=== PATIENT | female | born 1955 | race Caucasian/White ===

== ENCOUNTER 2019-10-06 13:39 | Observation (INO) | payer BC ==
[2019-10-06] MEDS ORDERED: NORMAL SALINE 1000 ML 1,000 ML IV ONE ×2 (14:05→19:04)
--- NOTE | 2019-10-06 14:08 | ER Document Report ---
ED Medical Screen (RME) - General Chief Complaint: Congestion Stated Complaint: CONGESTION/COUGH Time Seen by Provider: 10/06/19 14:02 - HPI Notes: 10/06/19 14:05 64 year old female to the ED with C/O cough, congestion that has been ongoing since Sep 24 when she was discharged from the hospital for pneumonia. States she was on Levaquin and Doxycycline but she still feels the same. Admits to chest tightness and pressure as well as SOB. She gets particularly SOB when she exerts herself. She is a lymphoma patient and visiting family. I have performed a medical screening exam on the patient and determined she will need further management by mainside provider. I have placed initial orders to help expedite her care. 10/06/19 14:07 - Related Data Allergies/Adverse Reactions: ceftriaxone [From Rocephin] Allergy (Verified 10/06/19 13:54) Home Medications: Levaquin. Doxycline Past Medical History - Social History Chew tobacco use (# tins/day): No Drug Abuse: None Physical Exam - Vital signs Vitals: Temp Pulse Resp BP Pulse Ox 98.3 F 75 18 189/69 H 95 10/06/19 13:46 10/06/19 13:46 10/06/19 13:46 10/06/19 13:46 10/06/19 13:46 Course - Vital Signs Vital signs: Temp Pulse Resp BP Pulse Ox 98.3 F 75 18 189/69 H 95 10/06/19 13:54 10/06/19 13:54 10/06/19 13:54 10/06/19 13:54 10/06/19 13:54
--- NOTE | 2019-10-06 15:44 | EKG REPORT ---
SEVERITY:- ABNORMAL ECG - SINUS RHYTHM BORDERLINE LEFT AXIS DEVIATION NONSPECIFIC T ABNORMALITIES, INFERIOR LEADS : Confirmed by: Arnol Benítez MD 06-Oct-2019 15:43:50
[2019-10-06 15:49] LABS: ABSOLUTE EOSINOPHILS # (AUTO) 0.2 10^3/uL (0.0-0.6); ABSOLUTE LYMPHOCYTES (AUTO) 0.5 10^3/uL (0.5-4.7); ABSOLUTE NEUT (AUTO) 7.1 10^3/uL (1.7-8.2); BASOPHILS % (AUTO) 0.4 % (0-2); EOSINOPHILS % (AUTO) 2.1 % (0-6); HEMATOCRIT 40.3 % (36.0-47.0); HEMOGLOBIN 13.4 g/dL (12.0-15.5); LYMPHOCYTES % (AUTO) 5.4 % (13-45); MEAN CORPUSCULAR HEMOGLOBIN 31.3 pg (27.0-33.4); MEAN CORPUSCULAR HGB CONC 33.2 g/dL (32.0-36.0); MEAN CORPUSCULAR VOLUME 94 fl (80-97); MONOCYTES % (AUTO) 10.9 % (3-13); PLATELET COUNT 174 10^3/uL (150-450); RED BLOOD COUNT 4.26 10^6/uL (3.72-5.28); RED CELL DISTRIBUTION WIDTH 14.4 % (11.5-14.0); SEGMENTED NEUTROPHILS % (AUTO) 81.2 % (42-78); TOTAL CELLS COUNTED % (AUTO) 100 %; WHITE BLOOD COUNT 8.8 10^3/uL (4.0-10.5)
[2019-10-06 16:07] LABS: ALBUMIN 4.1 g/dL (3.5-5.0); ALKALINE PHOSPHATASE 87 U/L (38-126); ANION GAP 11 (5-19); ASPARTATE AMINO TRANSFERASE 21 U/L (14-36); BILIRUBIN,DIRECT 0.1 mg/dL (0.0-0.4); BILIRUBIN,TOTAL 0.7 mg/dL (0.2-1.3); BLOOD UREA NITROGEN 9 mg/dL (7-20); CALCIUM 9.7 mg/dL (8.4-10.2); CARBON DIOXIDE 28 mmol/L (22-30); CHLORIDE 103 mmol/L (98-107); GLUCOSE 230 mg/dL (75-110); POTASSIUM 4.1 mmol/L (3.6-5.0); TOTAL PROTEIN 6.5 g/dL (6.3-8.2)
--- NOTE | 2019-10-06 16:48 | RADIOLOGY REPORT (SQ) ---
EXAM DESCRIPTION: CHEST 2 VIEWS COMPLETED DATE/TIME: 10/06/2019 4:36 pm REASON FOR STUDY: cough, SOB COMPARISON: None. EXAM PARAMETERS: NUMBER OF VIEWS: two views TECHNIQUE: Digital Frontal and Lateral radiographic views of the chest acquired. RADIATION DOSE: NA LIMITATIONS: none FINDINGS: LUNGS AND PLEURA: No opacities, masses or pneumothorax. No pleural effusion. MEDIASTINUM AND HILAR STRUCTURES: No masses or contour abnormalities. HEART AND VASCULAR STRUCTURES: Heart normal size. No evidence for failure. BONES: No acute findings. HARDWARE: None in the chest. OTHER: No other significant finding. IMPRESSION: NO ACUTE RADIOGRAPHIC FINDING IN THE CHEST. TECHNICAL DOCUMENTATION: JOB ID: [id number] [place]-72 2010 [employer]- All Rights Reserved Reading location - IP/workstation name: [email or web address]
[2019-10-06] MEDS ORDERED: IPRATROPIUM/ALBUTEROL 0.5-2.5 MG/3 ML AMPUL NEB ONE (17:35)
--- NOTE | 2019-10-06 17:41 | ER Document Report ---
ED Respiratory Problem - General Chief Complaint: Congestion Stated Complaint: CONGESTION/COUGH Time Seen by Provider: 10/06/19 14:02 Notes: Ms. Abraham is a 64 yo f w/ PMH diabetes, hypertension, hyperlipidemia, and lymphoma on chemotherapy Bendamustine/Rituxan/dexamethasone, GERD, and asthma presenting to ED for congestion and cough. Patient states in the beginning of June, her son flew out to [place] and she and him together drove back to [place] where he lives. She states that after the drive, her left lower extremity was significantly swollen. She was prescribed an antibiotic for a possible "blood infection" by her doctor in [place]. Approximately 1 week ago, she drove from [place] to [place] to visit her niece and nephew. She endorses again an increase in left lower leg swelling. She states that she feels short of breath, chest tightness and ongoing cough that has not resolved since being hospitalized for pneumonia from the to 06 September. Patient's last dose of IV chemotherapy was on September 26. Patient endorses subjective chills without any fevers. No chest pain, abdominal pain, nausea vomiting or diarrhea. She does have some mild dyspnea upon exertion. - Related Data Allergies/Adverse Reactions: ceftriaxone [From Rocephin] Allergy (Verified 10/06/19 13:54) Home Medications: Levaquin. Doxycline Past Medical History - Social History Smoking Status: Former Smoker Chew tobacco use (# tins/day): No Drug Abuse: None Family History: Reviewed & Not Pertinent Patient has suicidal ideation: No Patient has homicidal ideation: No - Past Medical History Cardiac Medical History: Reports: Hx Hypercholesterolemia, Hx Hypertension Endocrine Medical History: Reports: Hx Diabetes Mellitus Type 2 Review of Systems - Review of Systems Constitutional: See HPI EENT: No symptoms reported Cardiovascular: No symptoms reported Respiratory: See HPI Gastrointestinal: No symptoms reported Genitourinary: No symptoms reported Female Genitourinary: No symptoms reported Musculoskeletal: No symptoms reported Skin: No symptoms reported Hematologic/Lymphatic: No symptoms reported Neurological/Psychological: No symptoms reported Physical Exam - Vital signs Vitals: Temp Pulse Resp BP Pulse Ox 98.3 F 75 18 189/69 H 95 10/06/19 13:46 10/06/19 13:46 10/06/19 13:46 10/06/19 13:46 10/06/19 13:46 Interpretation: Hypertensive - General General appearance: Appears well, Alert - HEENT Head: Normocephalic, Atraumatic Eyes: Normal Pupils: PERRL - Respiratory Respiratory status: No respiratory distress Chest status: Nontender Breath sounds: Decreased air movement - Somewhat decreased throughout., Rhonchi - Mild rhonchi to the left lower lobe, Wheezing - Expiratory wheeze and faint crackles to the left lower lobe. Chest palpation: Normal - Cardiovascular Rhythm: Regular Heart sounds: Normal auscultation Murmur: No - Abdominal Inspection: Normal Distension: No distension Bowel sounds: Normal Tenderness: Nontender Organomegaly: No organomegaly - Back Back: Normal, Nontender - Extremities General upper extremity: Normal inspection, Nontender, Normal color, Normal ROM, Normal temperature General lower extremity: Normal inspection, Nontender, Normal color, Normal ROM, Normal temperature, Normal weight bearing. No: Ariadne's sign - Neurological Neuro grossly intact: Yes Cognition: Normal Orientation: AAOx4 [place] Coma Scale Eye Opening: Spontaneous [place] Coma Scale Verbal: Oriented Aruna Coma Scale Motor: Obeys Commands [place] Coma Scale Total: 15 Speech: Normal Motor strength normal: LUE, RUE, LLE, RLE Sensory: Normal - Psychological Associated symptoms: Normal affect, Normal mood - Skin Skin Temperature: Warm Skin Moisture: Dry Skin Color: Normal Course - Re-evaluation Re-evalutation: Patient is generally well-appearing and nontoxic. Initial vitals notable for elevated blood pressure. Differential diagnosis includes pneumonia, URI, post pneumonia residual cough, PE Patient is actively coughing a dry nonproductive cough in the ED. She does have focal findings on clinical examination with rhonchi, crackles and an expiratory wheeze in the left lower lobe concerning for pneumonia however chest x-ray has been read as negative. Patient ordered for 2 duo nebs here in the ED. Possible postinfectious lingering cough related to her pneumonia in mid August. Patient has remote history of smoking however was never a heavy smoker, more than half a pack per day on and off for approximately 15 to 20 years. She also has been quit for over 20 years and has no diagnosis of COPD. Patient has multiple risk factors for PE and is high risk and therefore d-dimer is not indicated. Patient is both a active cancer patient with lymphoma as well as having had 2 very long extended time periods of immobilization with her trip from [place] to [place] and from [place] to [place]. In addition, the patient reports having had unilateral left leg swelling which has since improved. Labs were ordered from triage. CBC does not show significant leukocytosis or left shift. CMP is within normal limits however patient's lactic acid is elevated at 3.2. Patient was ordered for a liter of fluid. Initial troponin is negative. 10/06/19 18:30 Multiple nurses attempted including 2 ultrasound IV attempts and unable to obtain CT that is appropriately large enough for CTA chest. Patient will be ordered for VQ scan. Patient ordered for second liter of fluid. Repeat lactate ordered. Repeat lactate also ordered. 10/06/19 19:33 Patient signed out to Dr. Nguyen pending VQ scan results and disposition. - Vital Signs Vital signs: Temp Pulse Resp BP Pulse Ox 98.3 F 75 18 189/69 H 95 10/06/19 13:54 10/06/19 13:54 10/06/19 13:54 10/06/19 13:54 10/06/19 13:54 - Laboratory Result Diagrams: 10/06/19 15:25 10/06/19 15:25 Laboratory results interpreted by me: 10/06/19 10/06/19 10/06/19 15:25 15:25 15:25 RDW 14.4 H Lymph % (Auto) 5.4 L Seg Neutrophils % 81.2 H Creatinine 0.44 L Glucose 230 H Lactic Acid (Sepsis) 3.2 H Discharge - Discharge Clinical Impression: Cough Condition: Good Disposition: OTHER
[2019-10-06 20:29] LABS: APPEARANCE,URINE CLEAR; BILIRUBIN,URINE NEGATIVE (NEGATIVE); COLOR,URINE YELLOW; GLUCOSE, URINE NEGATIVE (NEGATIVE); KETONES,URINE NEGATIVE (NEGATIVE); LEUKOCYTE ESTERASE,URINE NEGATIVE (NEGATIVE); NITRITE,URINE NEGATIVE (NEGATIVE); PROTEIN,URINE NEGATIVE (NEGATIVE); URINE SPECIFIC GRAVITY 1.012; UROBILINOGEN,URINE NEGATIVE mg/dL (<2.0)
--- NOTE | 2019-10-06 21:36 | RADIOLOGY REPORT (SQ) ---
VENTILATION/PERFUSION SCAN HISTORY: Shortness of breath. TECHNIQUE: The patient received 32.7 mCi of Tc-99m DTPA aerosol via inhalation and 5.37 mCi of technetium-99m MAA intravenously. Multiple ventilation and perfusion views of the chest were obtained. FINDINGS: The perfusion images show homogeneous distribution of the radiotracer in both lungs. The ventilation images show homogeneous distribution of the radiotracer in both lungs, along with ingested radiotracer seen within the GI tract. No mismatched ventilation/perfusion defects are identified. IMPRESSION: No evidence of acute pulmonary embolism.
[2019-10-06] MEDS ORDERED: MORPHINE SULFATE 10 MG/ML INJ IV PRN ×2 (23:04)
[2019-10-06] MEDS ORDERED: ACETAMINOPHEN 325 MG TABLET PO PRN (23:04)
[2019-10-06] MEDS ORDERED: MAGNESIUM HYDROXIDE SUSP 30 ML UDCUP PO PRN (23:04)
[2019-10-06] MEDS ORDERED: MAG HYDROX/AL HYDROX/SIMETH SUSP 30 ML UDCUP PO PRN (23:04)
[2019-10-06] MEDS ORDERED: MELATONIN 5 MG TABLET PO PRN (23:04)
[2019-10-06] MEDS ORDERED: NITROGLYCERIN 0.4 MG/TAB 25 TAB/BOTTLE SL PRN (23:04)
[2019-10-06] MEDS ORDERED: PROMETHAZINE HCL INJ 25 MG/1 ML VIAL IV PRN (23:04)
[2019-10-06] MEDS ORDERED: INSULIN REG, HUMAN 100 UNIT/ML 3 ML VIAL (PYX) SUBCUT PRN (23:04)
[2019-10-06] MEDS ORDERED: HYDRALAZINE HCL INJ/PF 20 MG/1 ML SDV IV PRN (23:04)
[2019-10-06] MEDS ORDERED: LEVALBUTEROL HCL NEB 0.63 MG/3 ML AMPUL NEB PRN (23:04)
[2019-10-06] MEDS ORDERED: GLUCAGON,HUMAN RECOMB 1 MG INJ IM PRN (23:06)
[2019-10-06] MEDS ORDERED: DEXTROSE 40% GEL 15 GM TUBE PO PRN ×2 (23:06)
[2019-10-06] MEDS ORDERED: DEXTROSE 50%-WATER 25 GM/50 ML DISP.SYRIN IV PRN ×2 (23:06)
[2019-10-06] MEDS ORDERED: TEMAZEPAM 15 MG CAPSULE PO PRN (23:19)
[2019-10-06] MEDS: PROPRANOLOL HCL 20 MG TABLET PO SCH (23:49)
[2019-10-06] MEDS ORDERED: ATORVASTATIN CALCIUM 80 MG TABLET PO ONE (23:59)
[2019-10-07] MEDS: MORPHINE SULFATE 10 MG/ML INJ IV PRN ×3 (01:14→22:38)
--- NOTE | 2019-10-07 02:10 | PDOC H&P ---
History of Present Illness Admission Date/PCP: 10/06/2019 22:38 No local PCP Patient complains of: Cough History of Present Illness: WILFREDO DE LUNA is a 64 year old female who presented to the emergency room with a 5-week history of cough. She admits a persistent nonproductive cough accompanied by dyspnea with exertion and substernal chest pressure on exertion for the last 3 weeks. Additionally she has noted intermittent subjective chills and intermittent swelling of her left lower leg related to prolonged car travel and left upper extremity related to a PICC line site. She denies other associated or accompanying signs and symptoms. She has been hospitalized once for the same symptoms from the to 06 September in [place] and has also taken a course of doxycycline since that time, all without improvement. She received her most recent round of chemotherapy for lymphoma on September 26. She has not identified any additional aggravating or ameliorating factors for her symptoms. In the emergency room she was found to have an unremarkable laboratory evaluation with a negative chest x-ray and VQ scan. Due to the concern about her exercise-induced chest pain and the history of edema of her left lower leg and left upper extremity she was admitted to observation status for further evaluation and treatment. Dr. Webb was consulted by the emergency room physician and is aware of the patient's need for a Cardiolite stress test in the morning. Past Medical History Cardiac Medical History: Reports: Hyperlipidema, Hypertension Denies: Atrial Fibrillation, Congestive Heart Failure, Coronary Artery Disease, Myocardial Infarction Pulmonary Medical History: Reports: Asthma, Pneumonia Denies: Chronic Obstructive Pulmonary Disease (COPD) EENT Medical History: Denies: Cataracts, Ears - Hearing aids Neurological Medical History: Denies: Hemorrhagic CVA, Ischemic CVA, Seizures Endocrine Medical History: Reports: Diabetes Mellitus Type 2 Denies: Diabetes Mellitus Type 1, Hyperthyroidism, Hypothyroidism, Obesity Renal/ Medical History: Denies: Chronic Kidney Disease, Nephrolithiasis Malignancy Medical History: Reports: Lymphoma - Non-Hodgkin's lymphoma stage IV Malignancy History Note: Current chemotherapy: Bendamustine/Rituxan/dexamethasone GI Medical History: Denies: Cirrhosis, Crohn's Disease, Hepatitis, Ulcerative Colitis Musculoskeltal Medical History: Denies: Arthritis, Gout Skin Medical History: Denies: Eczema, Psoriasis Psychiatric Medical History: Denies: Alcohol Dependency, Substance Abuse, Tobacco Dependency Traumatic Medical History: Reports: None Hematology: Denies: Anemia, Bleeding Tendencies Infectious Medical History: Reports: None Past Surgical History Past Surgical History: Reports: Other - Salivary gland and lymph node biopsy/excision right anterior cervical Social History Information Source: Patient Lives with: Family Smoking Status: Former Smoker Electronic Cigarette use?: No Frequency of Alcohol Use: None Hx Recreational Drug Use: No Drugs: None Hx Prescription Drug Abuse: No - Advance Directive Resuscitation Status: Full Code Surrogate healthcare decision maker:: Carol Finadolfo Family History Family History: Hypertension, Malignancy. denies: CAD, DM Parental Family History Reviewed: Yes Children Family History Reviewed: No Sibling(s) Family History Reviewed.: Yes Medication/Allergy Home Medications: Atorvastatin Calcium [Lipitor 80 mg Tablet] 10/06/19 Gabapentin [Neurontin 300 mg Capsule] 10/06/19 Glimepiride [Amaryl 4 mg Tablet] 10/06/19 Metformin HCl [Glucophage 500 mg Tablet] 2 PO BID 10/06/19 Omeprazole Magnesium [Prilosec Otc] 20 mg PO 10/06/19 Propranolol HCl [Inderal 20 mg Tablet] 20 mg PO Q12 10/06/19 Allergies/Adverse Reactions: ceftriaxone [From Rocephin] Allergy (Verified 10/06/19 13:54) Review of Systems Constitutional: PRESENT: as per HPI, chills. ABSENT: fever(s) Eyes: ABSENT: visual disturbances, other - Eye pain Ears: ABSENT: hearing changes, other - Ear pain Nose, Mouth, and Throat: ABSENT: mouth pain, sore throat Cardiovascular: PRESENT: as per HPI, chest pain, dyspnea on exertion, edema. ABSENT: orthropnea, palpitations Respiratory: PRESENT: as per HPI, cough, dyspnea. ABSENT: hemoptysis, sputum Gastrointestinal: ABSENT: abdominal pain, constipation, diarrhea, nausea, vomiting Genitourinary: ABSENT: dysuria, hematuria Musculoskeletal: ABSENT: back pain, joint swelling, muscle weakness Integumentary: ABSENT: pruritus, rash Neurological: ABSENT: confusion, convulsions, focal weakness, memory loss, numbness, syncope Psychiatric: ABSENT: anxiety, depression Endocrine: ABSENT: cold intolerance, heat intolerance Hematologic/Lymphatic: ABSENT: easy bleeding, easy bruising Allergic/Immunologic: ABSENT: seasonal rhinorrhea Physical Exam Vital Signs: Temp Pulse Resp BP Pulse Ox 98.3 F 75 18 189/69 H 95 10/06/19 13:54 10/06/19 13:54 10/06/19 13:54 10/06/19 13:54 10/06/19 13:54 Intake & Output 10/04/19 10/05/19 10/06/19 23:59 23:59 23:59 Intake Total 1999 Balance 1999 Weight 73.2 kg General appearance: PRESENT: no acute distress, cooperative Head exam: PRESENT: atraumatic, normocephalic Eye exam: PRESENT: conjunctiva pink. ABSENT: conjunctival injection, scleral icterus Ear exam: PRESENT: normal external ear exam. ABSENT: bleeding, drainage Mouth exam: PRESENT: dry mucosa, neck supple Neck exam: ABSENT: thyromegaly, tracheal deviation Respiratory exam: PRESENT: clear to auscultation arnie, symmetrical, unlabored Cardiovascular exam: PRESENT: RRR. ABSENT: clicks, gallop, rubs Pulses: PRESENT: normal radial pulses, normal dorsalis pedis pul Vascular exam: PRESENT: normal capillary refill. ABSENT: pallor GI/Abdominal exam: PRESENT: normal bowel sounds, soft Rectal exam: PRESENT: deferred Extremities exam: ABSENT: joint swelling, pedal edema Musculoskeletal exam: ABSENT: deformity, dislocation Neurological exam: PRESENT: alert, oriented to person, oriented to place, oriented to time, oriented to situation, CN II-XII grossly intact. ABSENT: motor sensory deficit Psychiatric exam: PRESENT: appropriate affect, normal mood Skin exam: PRESENT: dry, intact, warm. ABSENT: jaundice, rash, urticaria Results Laboratory Results: 10/06/19 15:25 10/06/19 15:25 10/06/19 10/06/19 10/06/19 15:25 15:25 20:00 WBC 8.8 RBC 4.26 Hgb 13.4 Hct 40.3 MCV 94 MCH 31.3 MCHC 33.2 RDW 14.4 H Plt Count 174 Seg Neutrophils % 81.2 H Sodium 141.5 Potassium 4.1 Chloride 103 Carbon Dioxide 28 Anion Gap 11 BUN 9 Creatinine 0.44 L Est GFR ( Amer) > 60 Glucose 230 H Calcium 9.7 Total Bilirubin 0.7 AST 21 Alkaline Phosphatase 87 Total Protein 6.5 Albumin 4.1 Urine Color YELLOW Urine Appearance CLEAR Urine pH 6.0 Ur Specific Lavina 1.012 Urine Protein NEGATIVE Urine Glucose (UA) NEGATIVE Urine Ketones NEGATIVE Urine Blood NEGATIVE Urine Nitrite NEGATIVE Ur Leukocyte Esterase NEGATIVE Urine WBC (Auto) 0 Urine RBC (Auto) 0 10/06/19 10/06/19 15:25 19:45 Troponin I < 0.012 < 0.012 Impressions: Chest X-Ray 10/06/19 14:04 IMPRESSION: NO ACUTE RADIOGRAPHIC FINDING IN THE CHEST. Lung Scan-VQ NM 10/06/19 18:51 IMPRESSION: No evidence of acute pulmonary embolism. Assessment and Plan - Diagnosis (1) Cough Is this a current diagnosis for this admission?: Yes (2) Swelling of left lower extremity Is this a current diagnosis for this admission?: Yes (3) Left upper extremity swelling Is this a current diagnosis for this admission?: Yes (4) Dyspnea on exertion Is this a current diagnosis for this admission?: Yes (5) Exertional chest pain Is this a current diagnosis for this admission?: Yes (6) Diabetes mellitus type 2 in nonobese Is this a current diagnosis for this admission?: Yes (7) Essential hypertension Is this a current diagnosis for this admission?: Yes (8) Hyperlipidemia associated with type 2 diabetes mellitus Is this a current diagnosis for this admission?: Yes (9) [place] stage IV diffuse non-Hodgkin's lymphoma Is this a current diagnosis for this admission?: Yes - Plan Summary Summary: Patient is admitted to inpatient observation status on a telemetry floor. She will receive routine supportive and symptomatic cares. Dr. Webb will be consulted, and a Cardiolite stress test will be planned for the morning. Patient will have Doppler ultrasounds of her left upper and left lower extremities to evaluate for possible DVT. A hemoglobin A1c, TSH and lipid profile will be obtained. Patient will use morphine sulfate 2 to 4 mg IV every 2 hours on a as needed basis for pain control. Patient's usual medications for her chronic medical illnesses will be continued as appropriate. Before meals and at bedtime Accu-Cheks will be obtained and hyperglycemia will be treated with sliding scale regular insulin and a hypoglycemic protocol will be in place. Patient will be treated with a cardiac and diabetic diet. - Time Time Spent with patient: 25-34 minutes Medications reviewed and adjusted accordingly: Yes Anticipated discharge: Home Within: within 48 hours - Inpatient Certification Based on my medical assessment, after consideration of the patient's comorbid ities, presenting symptoms, or acuity I expect that the services needed warrant INPATIENT care.: No I certify that my determination is in accordance with my understanding of Doug peña's requirements for reasonable and necessary INPATIENT services [42 CFR 412.3e].: No Medical Necessity: Need Close Monitoring Due to Risk of Patient Decompensation, Need For Continuous Telemetry Monitoring
[2019-10-07 02:49] LABS: CREATINE KINASE MB 1.53 ng/mL (<4.55)
[2019-10-07 02:54] LABS: TROPONIN I < 0.012 ng/mL
[2019-10-07] MEDS: PANTOPRAZOLE SODIUM 40 MG TABLET.DR PO SCH (06:19)
[2019-10-07] MEDS: HEPARIN SOD (PORCINE) 5,000 UNIT/ML 1 ML VIAL SUBCUT SCH ×3 (06:21→22:43)
[2019-10-07] MEDS: METFORMIN HCL 500 MG TABLET PO SCH ×2 (07:57→18:28)
[2019-10-07 08:21] LABS: HEMATOCRIT 39.1 % (36.0-47.0); HEMOGLOBIN 13.1 g/dL (12.0-15.5); MEAN CORPUSCULAR HEMOGLOBIN 31.5 pg (27.0-33.4); MEAN CORPUSCULAR HGB CONC 33.5 g/dL (32.0-36.0); MEAN CORPUSCULAR VOLUME 94 fl (80-97); PLATELET COUNT 163 10^3/uL (150-450); RED BLOOD COUNT 4.15 10^6/uL (3.72-5.28); RED CELL DISTRIBUTION WIDTH 14.4 % (11.5-14.0); WHITE BLOOD COUNT 5.8 10^3/uL (4.0-10.5)
[2019-10-07 08:48] LABS: ANION GAP 6 (5-19); BLOOD UREA NITROGEN 8 mg/dL (7-20); CALCIUM 9.6 mg/dL (8.4-10.2); CARBON DIOXIDE 29 mmol/L (22-30); CHLORIDE 105 mmol/L (98-107); CHOLESTEROL 108.36 mg/dL (0-200); CREATINE KINASE 48 U/L (30-135); GLUCOSE 162 mg/dL (75-110); TRIGLYCERIDES 155 mg/dL (<150)
[2019-10-07 08:54] LABS: CREATINE KINASE MB 1.81 ng/mL (<4.55)
[2019-10-07 08:59] LABS: DIRECT LDL 58 mg/dL (<100); TROPONIN I < 0.012 ng/mL
--- NOTE | 2019-10-07 10:05 | RADIOLOGY REPORT (SQ) ---
EXAM DESCRIPTION: VENOUS UNILATERAL LOWER COMPLETED DATE/TIME: 10/07/2019 9:55 am REASON FOR STUDY: Swelling left lower and left upper extremity COMPARISON: None. TECHNIQUE: Dynamic and static multani scale and color images acquired of the left leg venous system. Se lected spectral images acquired with additional compression and augmentation maneuvers. The contralat eral common femoral vein and saphenofemoral junction were also imaged. Images stored on PACS. LIMITATIONS: None. FINDINGS: COMMON FEMORAL: Normal phasicity, compression and augmentation. No visualized echogenic ma terial on multani scale. No defects on color images. FEMORAL: Normal compression and augmentation. No visualized echogenic material on multani scale. No defe cts on color images. POPLITEAL: Normal compression, augmentation. No visualized echogenic material on multani scale. No defec ts on color images. CALF VESSELS: Normal compression, augmentation. No visualized echogenic material on multani scale. No de fects on color images. GSV and SSV: Normal compression, augmentation. No visualized echogenic material in grayscale. No de fects on color images. ANY DEEP VENOUS INSUFFICIENCY: Not evaluated. ANY EVIDENCE OF POPLITEAL CYST: No. OTHER: No other significant finding. CONTRALATERAL COMMON FEMORAL VEIN AND SAPHENOFEMORAL JUNCTION: Normal phasicity, compression and augmentation. No visualized echogenic material on multani scale. No de fects on color images. IMPRESSION: NO EVIDENCE DVT OR SVT IN THE LEFT LEG. TECHNICAL DOCUMENTATION: JOB ID: [id number] [employer]- All Rights Reserved Reading location - IP/workstation name: [email or web address]
[2019-10-07] MEDS: PROPRANOLOL HCL 20 MG TABLET PO SCH ×2 (10:06→22:46)
--- NOTE | 2019-10-07 10:06 | RADIOLOGY REPORT (SQ) ---
EXAM DESCRIPTION: VENOUS UNILATERAL UPPER COMPLETED DATE/TIME: 10/07/2019 9:55 am REASON FOR STUDY: left upper extremity swelling COMPARISON: None. TECHNIQUE: Dynamic and static multani scale and color images acquired of the left arm venous system. Se lected spectral images acquired with additional compression and augmentation maneuvers. The contralat eral subclavian vein and internal jugular vein were also imaged. Images stored on PACS. LIMITATIONS: None. FINDINGS: INTERNAL JUGULAR VEIN: Normal phasicity, compression, augmentation. No visualized echogeni c material on multani scale. No defects on color images. Comparison opposite side normal. SUBCLAVIAN VEIN: Normal compression, augmentation. No visualized echogenic material on multani scale. No defects on color images. AXILLARY VEIN: Normal compression, augmentation. No visualized echogenic material on multani scale. No d efects on color images. BRACHIAL VEIN: Normal compression, augmentation. No visualized echogenic material on multani scale. No d efects on color images. BASILIC VEIN: Normal compression, augmentation. No visualized echogenic material on multani scale. No de fects on color images. CEPHALIC VEIN: Normal compression, augmentation. No visualized echogenic material on multani scale. No d efects on color images. OTHER: No other significant finding. IMPRESSION: NO EVIDENCE DVT OR SVT IN THE LEFT ARM. TECHNICAL DOCUMENTATION: JOB ID: [id number] [employer]- All Rights Reserved Reading location - IP/workstation name: [email or web address]
[2019-10-07] MEDS: DOCUSATE SODIUM 100 MG CAPSULE PO SCH ×2 (10:07→18:45)
[2019-10-07] MEDS: GLIMEPIRIDE 4 MG TABLET PO SCH (10:07)
--- NOTE | 2019-10-07 12:24 | PDOC CONSULTATION ---
Consultation Consult Date: 10/07/19 Provider Consulted: CINDY HORN History of Present Illness Admission Date/PCP: 10/06/19 23:26 Patient complains of: dyspnea History of Present Illness: WILFREDO DE LUNA is a 64 year old female With the following active problems. 1. Non-Hodgkin's lymphoma 2. Systemic hypertension 3. Diabetes mellitus 4. Dyslipidemia 64-year-old lady who is actually not a ione to the area. She actually was receiving some treatments for lymphoma in [place]. Her main complaint is dyspnea with some mention of lower extremity edema which she no longer complains of. There is mention of recent pneumonia being treated with antibiotics but the patient continues to endorse persistent cough as well as dyspnea. There is specifically no mention of chest pain. There is no mention of angina or anginal equivalents. There is no prior mention of coronary artery disease patient has not had any stress testing. Since admission to the hospital evaluation for pulmonary embolism and DVT have been negative. It was ordered for the patient to receive a stress test but due to the fact that a VQ scan was performed due to protocol she is not allowed to get radioactive isotope in the next 48 hours. That the test was not performed. This morning at the time of my evaluation patient denies any chest pain. There is mention of dyspnea but at the present time patient does not appear to be short of breath. Past Medical History Cardiac Medical History: Reports: Hyperlipidema, Hypertension Denies: Atrial Fibrillation, Congestive Heart Failure, Coronary Artery Disease, Myocardial Infarction Pulmonary Medical History: Reports: Asthma, Pneumonia Denies: Chronic Obstructive Pulmonary Disease (COPD) EENT Medical History: Denies: Cataracts, Ears - Hearing aids Neurological Medical History: Denies: Hemorrhagic CVA, Ischemic CVA, Seizures Endocrine Medical History: Reports: Diabetes Mellitus Type 2 Denies: Diabetes Mellitus Type 1, Hyperthyroidism, Hypothyroidism, Obesity Renal/ Medical History: Denies: Chronic Kidney Disease, Nephrolithiasis Malignancy Medical History: Reports: Lymphoma - Non-Hodgkin's lymphoma stage IV GI Medical History: Denies: Cirrhosis, Crohn's Disease, Hepatitis, Ulcerative Colitis Musculoskeltal Medical History: Denies: Arthritis, Gout Skin Medical History: Denies: Eczema, Psoriasis Psychiatric Medical History: Denies: Alcohol Dependency, Substance Abuse, Tobacco Dependency Traumatic Medical History: Reports: None Hematology: Denies: Anemia, Bleeding Tendencies Infectious Medical History: Reports: None Past Surgical History Past Surgical History: Reports: Other - Salivary gland and lymph node biopsy/excision right anterior cervical Social History Lives with: Family Smoking Status: Former Smoker Electronic Cigarette use?: No Frequency of Alcohol Use: None Hx Recreational Drug Use: No Drugs: None Hx Prescription Drug Abuse: No - Advance Directive Resuscitation Status: Full Code Family History Family History: Hypertension, Malignancy. denies: CAD, DM Parental Family History Reviewed: No - No familial illnesses reported to me. Children Family History Reviewed: NA Sibling(s) Family History Reviewed.: NA Medication/Allergy Home Medications: Atorvastatin Calcium [Lipitor 80 mg Tablet] 80 mg PO DAILY 10/06/19 Gabapentin [Neurontin 300 mg Capsule] 300 mg PO BID 10/06/19 Propranolol HCl [Inderal 20 mg Tablet] 20 mg PO Q12 10/06/19 Aspirin [Ecotrin] 81 mg PO DAILY 10/07/19 Glimepiride 4 mg PO DAILY 10/07/19 Metformin HCl 1,000 mg PO BID 10/07/19 Omeprazole 20 mg PO DAILY 10/07/19 Allergies/Adverse Reactions: ceftriaxone [From Rocephin] Allergy (Verified 10/06/19 13:54) Review of Systems Nose, Mouth, and Throat: PRESENT: as per HPI Cardiovascular: PRESENT: as per HPI Respiratory: PRESENT: cough, dyspnea Gastrointestinal: PRESENT: as per HPI Physical Exam Vital Signs: Temp Pulse Resp BP Pulse Ox 98.3 F 64 17 181/82 H 97 10/07/19 08:00 10/07/19 08:00 10/07/19 08:00 10/07/19 08:00 10/07/19 08:00 Intake & Output 10/06/19 10/07/19 10/08/19 06:59 06:59 06:59 Intake Total 1999 Balance 1999 Weight 74.6 kg General appearance: PRESENT: no acute distress, cooperative Head exam: PRESENT: atraumatic, normocephalic Eye exam: PRESENT: conjunctiva pink, EOMI Respiratory exam: PRESENT: unlabored Cardiovascular exam: PRESENT: RRR, +S1, +S2 Pulses: PRESENT: normal radial pulses GI/Abdominal exam: PRESENT: soft Rectal exam: PRESENT: deferred Musculoskeletal exam: PRESENT: ambulatory, normal inspection Neurological exam: PRESENT: alert, awake, oriented to person, oriented to place, oriented to time, oriented to situation Psychiatric exam: PRESENT: appropriate affect Skin exam: PRESENT: dry, intact, normal color Results Laboratory Results: 10/07/19 08:07 10/07/19 08:07 10/06/19 10/06/19 10/06/19 15:25 15:25 20:00 WBC 8.8 RBC 4.26 Hgb 13.4 Hct 40.3 MCV 94 MCH 31.3 MCHC 33.2 RDW 14.4 H Plt Count 174 Seg Neutrophils % 81.2 H Sodium 141.5 Potassium 4.1 Chloride 103 Carbon Dioxide 28 Anion Gap 11 BUN 9 Creatinine 0.44 L Est GFR ( Amer) > 60 Glucose 230 H Calcium 9.7 Magnesium Total Bilirubin 0.7 AST 21 Alkaline Phosphatase 87 Total Protein 6.5 Albumin 4.1 Triglycerides Cholesterol LDL Cholesterol Direct VLDL Cholesterol HDL Cholesterol TSH Urine Color YELLOW Urine Appearance CLEAR Urine pH 6.0 Ur Specific [place] 1.012 Urine Protein NEGATIVE Urine Glucose (UA) NEGATIVE Urine Ketones NEGATIVE Urine Blood NEGATIVE Urine Nitrite NEGATIVE Ur Leukocyte Esterase NEGATIVE Urine WBC (Auto) 0 Urine RBC (Auto) 0 10/07/19 10/07/19 10/07/19 08:07 08:07 08:07 WBC 5.8 RBC 4.15 Hgb 13.1 Hct 39.1 MCV 94 MCH 31.5 MCHC 33.5 RDW 14.4 H Plt Count 163 Seg Neutrophils % Sodium 140.4 Potassium 4.0 Chloride 105 Carbon Dioxide 29 Anion Gap 6 BUN 8 Creatinine 0.43 L Est GFR ( Amer) > 60 Glucose 162 H Calcium 9.6 Magnesium 1.6 Total Bilirubin AST Alkaline Phosphatase Total Protein Albumin Triglycerides 155 H Cholesterol 108.36 LDL Cholesterol Direct 58 VLDL Cholesterol 31.0 HDL Cholesterol 37 L TSH 4.41 Urine Color Urine Appearance Urine pH Ur Specific [place] Urine Protein Urine Glucose (UA) Urine Ketones Urine Blood Urine Nitrite Ur Leukocyte Esterase Urine WBC (Auto) Urine RBC (Auto) 10/06/19 10/06/19 10/06/19 15:25 19:45 19:45 Creatine Kinase 54 CK-MB (CK-2) Troponin I < 0.012 < 0.012 10/06/19 10/07/19 10/07/19 19:45 01:55 01:55 Creatine Kinase 59 CK-MB (CK-2) 1.65 1.53 Troponin I Cancelled < 0.012 12/16/19 12/16/19 08:07 08:07 Creatine Kinase 48 CK-MB (CK-2) 1.81 Troponin I < 0.012 EKG Comments: Twelve-lead EKG independently reviewed by me Sinus rhythm, [address]-T changes to suggest ischemia. Normal intervals. Cardiac biomarkers troponin x3 is negative. Impressions: Chest X-Ray 10/06/19 14:04 IMPRESSION: NO ACUTE RADIOGRAPHIC FINDING IN THE CHEST. Lung Scan-VQ NM 10/06/19 18:51 IMPRESSION: No evidence of acute pulmonary embolism. Venous Doppler Study 10/07/19 00:00 IMPRESSION: NO EVIDENCE DVT OR SVT IN THE LEFT ARM. Assessment & Plan - Diagnosis (1) Cough Is this a current diagnosis for this admission?: Yes Plan: The cough does not seem to be a manifestation of a surrogate for angina for this patient. Her pulmonary evaluation radiology has been negative and evaluation for PE as be en negative as well. This may be related to her lymphoma or recent pneumonia (2) Dyspnea on exertion Is this a current diagnosis for this admission?: Yes Plan: We will be reasonable to get a transthoracic echocardiogram to evaluate heart structure and function and exclude valvular heart disease as cause of symptoms of cough and dyspnea. Clinically she does not have any murmurs and she appears euvolemic on exam. Given absence of ischemia on EKG and negative cardiac biomarkers and given technical limitations in pursuing a stress test presently I think it would be reasonable if necessary to proceed with stress testing as an outpatient. At the present time I do not feel strongly about pursuing stress testing
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
[2019-10-07] MEDS: ATORVASTATIN CALCIUM 80 MG TABLET PO SCH (22:46)
[2019-10-08] MEDS: PANTOPRAZOLE SODIUM 40 MG TABLET.DR PO SCH (05:21)
[2019-10-08] MEDS: HEPARIN SOD (PORCINE) 5,000 UNIT/ML 1 ML VIAL SUBCUT SCH ×3 (05:22→21:24)
[2019-10-08] MEDS: METFORMIN HCL 500 MG TABLET PO SCH ×2 (07:59→16:26)
[2019-10-08] MEDS: GLIMEPIRIDE 4 MG TABLET PO SCH (11:48)
[2019-10-08] MEDS: PROPRANOLOL HCL 20 MG TABLET PO SCH ×2 (11:48→21:24)
[2019-10-08] MEDS: DOCUSATE SODIUM 100 MG CAPSULE PO SCH ×2 (11:49→17:42)
[2019-10-08] MEDS ORDERED: REGADENOSON INJ 0.4 MG/5 ML DISP.SYRIN IV ONE (16:58)
--- NOTE | 2019-10-08 18:01 | PDOC PROGRESS REPORT ---
Subjective Progress Note for:: 10/08/19 Subjective:: No adverse events overnight. No new complaints. Vital signs been stable. No chest pain or shortness of breath. She had a stress test this morning which is waiting on the result now. Reason For Visit: EXERTIONAL CHEST PAIN, EXERTIONAL DYSPNEA, COUGH Physical Exam Vital Signs: Temp Pulse Resp BP Pulse Ox 97.8 F 75 16 147/55 H 93 10/08/19 11:48 10/08/19 11:48 10/08/19 11:48 10/08/19 11:48 10/08/19 11:48 Intake & Output 10/07/19 10/08/19 10/09/19 06:59 06:59 06:59 Intake Total 1999 1070 500 Balance 1999 1070 500 Weight 74.6 kg 74.4 kg General appearance: PRESENT: no acute distress, cooperative Respiratory exam: PRESENT: clear to auscultation arnie, symmetrical, unlabored. ABSENT: accessory muscle use, chest wall tenderness, crackles, prolonged expiratory phas, rhonchi, tachypnea, wheezes Cardiovascular exam: PRESENT: RRR, +S1, +S2 Pulses: PRESENT: normal carotid pulses Vascular exam: PRESENT: normal capillary refill GI/Abdominal exam: PRESENT: normal bowel sounds, soft. ABSENT: distended, guarding, rebound, tenderness Extremities exam: ABSENT: clubbing, pedal edema Musculoskeletal exam: PRESENT: normal inspection. ABSENT: deformity Neurological exam: PRESENT: alert, awake, oriented to person, oriented to place, oriented to situation Psychiatric exam: PRESENT: appropriate affect, normal mood Skin exam: PRESENT: dry, warm Results Laboratory Results: 10/07/19 08:07 10/07/19 08:07 10/08/19 04:27 Magnesium 1.7 10/06/19 10/06/19 10/06/19 15:25 19:45 19:45 Creatine Kinase 54 CK-MB (CK-2) Troponin I < 0.012 < 0.012 10/06/19 10/07/19 10/07/19 19:45 01:55 01:55 Creatine Kinase 59 CK-MB (CK-2) 1.65 1.53 Troponin I Cancelled < 0.012 10/07/19 10/07/19 08:07 08:07 Creatine Kinase 48 CK-MB (CK-2) 1.81 Troponin I < 0.012 Impressions: Chest X-Ray 10/06/19 14:04 IMPRESSION: NO ACUTE RADIOGRAPHIC FINDING IN THE CHEST. Lung Scan-VQ NM 10/06/19 18:51 IMPRESSION: No evidence of acute pulmonary embolism. Venous Doppler Study 10/07/19 00:00 IMPRESSION: NO EVIDENCE DVT OR SVT IN THE LEFT ARM. Assessment and Plan - Diagnosis (1) Chest pain Qualifiers: Chest pain type: precordial pain Qualified Code(s): R07.2 - Precordial pain Is this a current diagnosis for this admission?: Yes Plan: Enzymes are normal. No ischemic events on telemetry. Stress test results are pending. (2) Diabetes mellitus type 2 in nonobese Is this a current diagnosis for this admission?: Yes Plan: We will continue her home medications (3) Essential hypertension Is this a current diagnosis for this admission?: Yes Plan: We will continue home medications - Plan Summary Summary: Patient is admitted to inpatient observation status on a telemetry floor. She will receive routine supportive and symptomatic cares. Dr. Webb will be consulted, and a Cardiolite stress test will be planned for the morning. Patient will have Doppler ultrasounds of her left upper and left lower ex tremities to evaluate for possible DVT. A hemoglobin A1c, TSH and lipid profile will be obtained. Patient will use morphine sulfate 2 to 4 mg IV every 2 hours on a as needed basis for pain control. Patient's usual medications for her chronic medical illnesses will be continued as appropriate. Before meals and at bedtime Accu-Cheks will be obtained and hyperglycemia will be treated with sliding scale regular insulin and a hypoglycemic protocol will be in place. Patient will be treated with a cardiac and diabetic diet. - Time Time Spent with patient: 15-24 minutes
[2019-10-08] MEDS: MORPHINE SULFATE 10 MG/ML INJ IV PRN (21:21)
[2019-10-08] MEDS: ATORVASTATIN CALCIUM 80 MG TABLET PO SCH (21:24)
[2019-10-09] MEDS ORDERED: HYDRALAZINE HCL INJ/PF 20 MG/1 ML SDV IV ONE (02:10)
[2019-10-09] MEDS: PANTOPRAZOLE SODIUM 40 MG TABLET.DR PO SCH (06:04)
[2019-10-09] MEDS: HEPARIN SOD (PORCINE) 5,000 UNIT/ML 1 ML VIAL SUBCUT SCH ×2 (06:06→13:17)
[2019-10-09] MEDS: METFORMIN HCL 500 MG TABLET PO SCH ×2 (08:43→17:02)
[2019-10-09] MEDS ORDERED: PROPRANOLOL HCL 20 MG TABLET PO SCH (10:00)
[2019-10-09] MEDS: GLIMEPIRIDE 4 MG TABLET PO SCH (10:07)
[2019-10-09] MEDS: DOCUSATE SODIUM 100 MG CAPSULE PO SCH ×2 (10:08→17:02)
--- NOTE | 2019-10-09 12:54 | DRAGON STRESS TEST REPORT ---
Pharmacological nuclear stress test Indication: Dyspnea, cardiac origin suspected Date of procedure: 10/08/2019 Procedure Rest images of the heart were obtained 120 minutes after injection of Cardiolite. The resting dose was 11.74 mCi. Under my supervision the patient was then given regadenoson 0.4 mg intravenously followed by Cardiolite 34.5 mCi intravenously. The presenting rhythm was sinus rhythm at 73 bpm. There were no EKG changes to suggest myocardial ischemia after pharmacological stress there was administered. No arrhythmias were noted. Stress images of the heart were obtained 120 minutes after injection of Cardiolite stress dose. Raw and processed rest and stress images were reviewed. Myocardial perfusion imaging shows normal perfusion with fixed defects in the inferior and basal segments suggestive of diaphragmatic or breast attenuation. There are no reversible perfusion defects. There is mild "apical thinning". The TID ratio is 1.1. There is normal LV contractility. Visual estimation of left ventricular ejection fraction is normal and is estimated at about 60-65%. Impression There is no evidence of myocardial ischemia on EKG induced by regadenoson. There are no reversible perfusion defects to suggest myocardial ischemia under pharmacological stress. Left ventricular ejection fraction is normal and estimated at 60-65%. MTDD
--- NOTE | 2019-10-09 15:17 | PDOC PROGRESS REPORT ---
Subjective Progress Note for:: 10/09/19 Subjective:: Patient does not complain of chest pain. Dyspnea is improved. Nocturnal cough is reported. Patient had stress test performed yesterday. Reason For Visit: EXERTIONAL CHEST PAIN, EXERTIONAL DYSPNEA, COUGH Physical Exam Vital Signs: Temp Pulse Resp BP Pulse Ox 98.4 F 71 17 147/70 H 94 10/09/19 12:00 10/09/19 14:00 10/09/19 12:00 10/09/19 12:00 10/09/19 12:00 Intake & Output 10/08/19 10/09/19 10/10/19 06:59 06:59 06:59 Intake Total 1070 1210 358 Balance 1070 1210 358 Weight 74.4 kg 74 kg General appearance: PRESENT: no acute distress Head exam: PRESENT: atraumatic, normocephalic Eye exam: PRESENT: EOMI Mouth exam: PRESENT: moist Respiratory exam: PRESENT: unlabored Cardiovascular exam: PRESENT: RRR, +S1, +S2 Pulses: PRESENT: normal radial pulses GI/Abdominal exam: PRESENT: soft Rectal exam: PRESENT: deferred Neurological exam: PRESENT: awake, oriented to person, oriented to place, oriented to time, oriented to situation Psychiatric exam: PRESENT: appropriate affect Skin exam: PRESENT: dry, intact, normal color Results Laboratory Results: 10/07/19 08:07 10/07/19 08:07 10/09/19 07:04 Magnesium 1.7 10/06/19 10/06/19 10/06/19 15:25 19:45 19:45 Creatine Kinase 54 CK-MB (CK-2) Troponin I < 0.012 < 0.012 10/06/19 10/07/19 10/07/19 19:45 01:55 01:55 Creatine Kinase 59 CK-MB (CK-2) 1.65 1.53 Troponin I Cancelled < 0.012 10/07/19 10/07/19 08:07 08:07 Creatine Kinase 48 CK-MB (CK-2) 1.81 Troponin I < 0.012 Impressions: Chest X-Ray 10/06/19 14:04 IMPRESSION: NO ACUTE RADIOGRAPHIC FINDING IN THE CHEST. Lung Scan-VQ NM 10/06/19 18:51 IMPRESSION: No evidence of acute pulmonary embolism. Venous Doppler Study 10/07/19 00:00 IMPRESSION: NO EVIDENCE DVT OR SVT IN THE LEFT ARM. Assessment & Plan - Diagnosis (1) Cough Is this a current diagnosis for this admission?: Yes Plan: Likely secondary to pneumonia previously and postnasal drip. Symptoms improved. (2) Dyspnea on exertion Is this a current diagnosis for this admission?: Yes Plan: Pharmacological stress test was performed yesterday. Myocardial perfusion imaging study does not reveal any reversible defects to suggest ischemia. Normal contractility and preserved ejection fraction on nuclear images. We will also obtain transthoracic echocardiogram to evaluate heart structure, function and exclude valvular heart disease as cause of symptoms. (3) Essential hypertension Is this a current diagnosis for this admission?: Yes Plan: Avoid added salt in the diet Continue medications for systemic hypertension.
--- NOTE | 2019-10-09 17:03 | XCELERA REPORT ---
[address] [address] Transthoracic Echocardiogram Report Name: WILFREDO DE LUNA Age: 64 yrs Gender: Female : 1955 Patient Status: [facility] Study Date: 10/09/2019 03:42 PM History: Dyspnea Cough persistent Height: 66 in Weight: 163 lb BSA: 1.8 m2 Procedure: A complete two-dimensional transthoracic echocardiogram was performed (2D, M-mode, spectral and color flow Doppler). Reason For Study: dyspnea Previous Evaluation: No previous studies were available. History: Shortness of breath. HTN. Diabetes. Ordering Physician: CINDY HORN Performed By: Janene Carlson Interpretation Summary Left ventricular systolic function is normal. The Ejection Fraction estimate is 60-65% The right ventricle is normal in size and function. There is a trace amount of mitral regurgitation There is a trace or physiologic amount of tricuspid regurgitation There is no pericardial effusion. MMode/2D Measurements & Calculations RVDd: 3.6 cm LVIDd: 5.3 cm FS: 37.6 % Ao root diam: 2.5 cm IVSd: 0.77 cm LVIDs: 3.3 cm EDV(Teich): 135.6 ml Ao root area: 5.1 cm2 LVPWd: 0.98 cm ESV(Teich): 44.4 ml EF(Teich): 67.2 % Doppler Measurements & Calculations MV E max amairani: MV dec slope: Ao V2 max: LV V1 max P.1 cm/sec 428.8 cm/sec2 137.7 cm/sec 3.2 mmHg MV A max amairani: MV dec time: 0.23 sec Ao max P.6 mmHgLV V1 max: 118.8 cm/sec 89.2 cm/sec MV E/A: 0.83 PA V2 max: PI end-d amairani: TR max amairani: 76.3 cm/sec 65.6 cm/sec 236.7 cm/sec PA max P.3 mmHg TR max P.4 mmHg Left Ventricle The left ventricle is normal in size. There is borderline concentric left ventricular hypertrophy. Left ventricular systolic function is normal. The Ejection Fraction estimate is 60-65%. Doppler measurements suggest impaired left ventricular relaxation, which is associated with grade I/IV or mild diastolic dysfunction. No regional wall motion abnormalities noted. Right Ventricle The right ventricle is normal in size and function. Atria The right atrium is normal. The left atrial size is normal. Mitral Valve The mitral valve leaflets are sclerotic, but show no functional abnormalities. There is no mitral valve stenosis. There is a trace amount of mitral regurgitation. Aortic Valve The aortic valve is trileaflet. The aortic valve opens well. There is no aortic valve stenosis. No aortic regurgitation is present. Tricuspid Valve The tricuspid valve is normal in structure and function. There is a trace or physiologic amount of tricuspid regurgitation. Doppler findings do not suggest pulmonary hypertension. Pulmonic Valve The pulmonic valve is not well visualized. There is a trace or physiologic amount of pulmonic regurgitation. Great Vessels The aortic root is normal size. The inferior vena cava appeared normal and decreased < 50% with respiration (RAP 10-15 mmHg). The inferior vena cava appeared normal and decreased > 50% with respiration (RAP 5-10 mmHg). Effusions There is no pericardial effusion. : CINDY HORN Anil
--- NOTE | 2019-10-09 17:10 | PDOC DISCHARGE SUMMARY ---
Impression - Admit/DC Date/PCP Admission Date/Primary Care Provider: 10/06/19 23:26 Discharge Date: 10/09/19 - Discharge Diagnosis (1) Chest pain Is this a current diagnosis for this admission?: Yes (2) Diabetes mellitus type 2 in nonobese Is this a current diagnosis for this admission?: Yes (3) Essential hypertension Is this a current diagnosis for this admission?: Yes - Assessment Summary: Patient is admitted to inpatient observation status on a telemetry floor. She will receive routine supportive and symptomatic cares. Dr. Webb will be consulted, and a Cardiolite stress test will be planned for the morning. Patient will have Doppler ultrasounds of her left upper and left lower extremities to evaluate for possible DVT. A hemoglobin A1c, TSH and lipid profile will be obtained. Patient will use morphine sulfate 2 to 4 mg IV every 2 hours on a as needed basis for pain control. Patient's usual medications for her chronic medical illnesses will be continued as appropriate. Before meals and at bedtime Accu-Cheks will be obtained and hyperglycemia will be treated with sliding scale regular insulin and a hypoglycemic protocol will be in place. Patient will be treated with a cardiac and diabetic diet. - Additional Information Resuscitation Status: Full Code Discharge Diet: Cardiac, Diabetic Discharge Activity: Activity As Tolerated Referrals: NO,LOCAL PROVIDER [Other] (PATIENT IS FROM OUT OF STATE AND WILL FOLLOW UP WITH PCP UPON RETURNING HOME.) Home Medications: Atorvastatin Calcium [Lipitor 80 mg Tablet] 80 mg PO DAILY 10/06/19 Gabapentin [Neurontin 300 mg Capsule] 300 mg PO BID 10/06/19 Propranolol HCl [Inderal 20 mg Tablet] 20 mg PO Q12 10/06/19 Aspirin [Ecotrin] 81 mg PO DAILY 10/07/19 Glimepiride 4 mg PO DAILY 10/07/19 Metformin HCl 1,000 mg PO BID 10/07/19 Omeprazole 20 mg PO DAILY 10/07/19 History of Present Illiness History of Present Illness: WILFREDO DE LUNA is a 64 year old female who presented to the emergency room with a 5-week history of cough. She admits a persistent nonproductive cough accompanied by dyspnea with exertion and substernal chest pressure on exertion for the last 3 weeks. Additionally she has noted intermittent subjective chills and intermittent swelling of her left lower leg related to prolonged car travel and left upper extremity related to a PICC line site. She denies other associated or accompanying signs and symptoms. She has been hospitalized once for the same symptoms from the to 06 September in [place] and has also taken a course of doxycycline since that time, all without improvement. She received her most recent round of chemotherapy for lymphoma on September 26. She has not identified any additional aggravating or ameliorating factors for her symptoms. In the emergency room she was found to have an unremarkable laboratory evaluation with a negative chest x-ray and VQ scan. Due to the concern about her exercise-induced chest pain and the history of edema of her left lower leg and left upper extremity she was admitted to observation status for further evaluation and treatment. Dr. Webb was consulted by the emergency room physician and is aware of the patient's need for a Cardiolite stress test in the morning. Hospital Course Hospital Course: Her enzymes remain negative and she ruled out for an AZ. If she has been local, we probably could have sent her home and done a stress test as an outpatient. However, she is here visiting from [place] on her way to spend the next few months in [place], and has no provider here. Therefore, we decided to go ahead and get a stress test, which was normal. She also had an echocardiogram, and unofficial read shows some possible mild right ventricular dilation but no major valvular abnormalities. She was strongly encouraged to aggressively regulate her diabetes through diet. She verbalized understanding. Her labs and examination were reassuring she was discharged home in good condition. Physical Exam Vital Signs: Temp Pulse Resp BP Pulse Ox 98.4 F 71 17 147/70 H 94 10/09/19 12:00 10/09/19 14:00 10/09/19 12:00 10/09/19 12:00 10/09/19 12:00 Intake & Output 10/08/19 10/09/19 10/10/19 06:59 06:59 06:59 Intake Total 1070 1210 358 Balance 1070 1210 358 Weight 74.4 kg 74 kg General appearance: PRESENT: no acute distress, cooperative Respiratory exam: PRESENT: clear to auscultation arnie, symmetrical, unlabored. ABSENT: accessory muscle use, chest wall tenderness, crackles, prolonged expiratory phas, rhonchi, tachypnea, wheezes Cardiovascular exam: PRESENT: RRR, +S1, +S2 Pulses: PRESENT: normal carotid pulses Vascular exam: PRESENT: normal capillary refill GI/Abdominal exam: PRESENT: normal bowel sounds, soft. ABSENT: distended, guarding, rebound, tenderness Extremities exam: ABSENT: clubbing, pedal edema Musculoskeletal exam: PRESENT: normal inspection. ABSENT: deformity Neurological exam: PRESENT: alert, awake, oriented to person, oriented to place, oriented to situation Psychiatric exam: PRESENT: appropriate affect, normal mood Skin exam: PRESENT: dry, warm Results Laboratory Results: WBC 5.8 10^3/uL (4.0-10.5) 10/07/19 08:07 RBC 4.15 10^6/uL (3.72-5.28) 10/07/19 08:07 Hgb 13.1 g/dL (12.0-15.5) 10/07/19 08:07 Hct 39.1 % (36.0-47.0) 10/07/19 08:07 MCV 94 fl (80-97) 10/07/19 08:07 MCH 31.5 pg (27.0-33.4) 10/07/19 08:07 MCHC 33.5 g/dL (32.0-36.0) 10/07/19 08:07 RDW 14.4 % (11.5-14.0) H 10/07/19 08:07 Plt Count 163 10^3/uL (150-450) 10/07/19 08:07 Lymph % (Auto) 5.4 % (13-45) L 10/06/19 15:25 [place]cho % (Auto) 10.9 % (3-13) 10/06/19 15:25 Eos % (Auto) 2.1 % (0-6) 10/06/19 15:25 Baso % (Auto) 0.4 % (0-2) 10/06/19 15:25 Absolute Neuts (auto) 7.1 10^3/uL (1.7-8.2) 10/06/19 15:25 Absolute Lymphs (auto) 0.5 10^3/uL (0.5-4.7) 10/06/19 15:25 Absolute Monos (auto) 1.0 10^3/uL (0.1-1.4) 10/06/19 15:25 Absolute Eos (auto) 0.2 10^3/uL (0.0-0.6) 10/06/19 15:25 Absolute Basos (auto) 0.0 10^3/uL (0.0-0.2) 10/06/19 15:25 Seg Neutrophils % 81.2 % (42-78) H 10/06/19 15:25 D-Dimer 0.30 ug/mL (0.00-0.50) 10/07/19 08:07 Sodium 140.4 mmol/L (137-145) 10/07/19 08:07 Potassium 4.0 mmol/L (3.6-5.0) 10/07/19 08:07 Chloride 105 mmol/L (98-107) 10/07/19 08:07 Carbon Dioxide 29 mmol/L (22-30) 10/07/19 08:07 Anion Gap 6 (5-19) 10/07/19 08:07 BUN 8 mg/dL (7-20) 10/07/19 08:07 Creatinine 0.43 mg/dL (0.52-1.25) L 10/07/19 08:07 Est GFR ( Amer) > 60 (>60) 10/07/19 08:07 Est GFR (MDRD) Non-Af > 60 (>60) 10/07/19 08:07 Glucose 162 mg/dL (75-110) H 10/07/19 08:07 POC Glucose 235 mg/dL (70-110) H 10/09/19 16:37 Hemoglobin A1c % 10.2 % (4.7-6.0) H 10/07/19 08:07 Lactic Acid (Sepsis) 1.7 mmol/L (0.7-2.1) 10/06/19 18:30 Calcium 9.6 mg/dL (8.4-10.2) 10/07/19 08:07 Magnesium 1.7 mg/dL (1.6-2.3) 10/09/19 07:04 Total Bilirubin 0.7 mg/dL (0.2-1.3) 10/06/19 15:25 Direct Bilirubin 0.1 mg/dL (0.0-0.4) 10/06/19 15:25 Neonat Total Bilirubin Not Reportable 10/06/19 15:25 Neonat Direct Bilirubin Not Reportable 10/06/19 15:25 Neonat Indirect Bili Not Reportable 10/06/19 15:25 AST 21 U/L (14-36) 10/06/19 15:25 ALT 15 U/L (<35) 10/06/19 15:25 Alkaline Phosphatase 87 U/L (38-126) 10/06/19 15:25 Creatine Kinase 48 U/L (30-135) 10/07/19 08:07 CK-MB (CK-2) 1.81 ng/mL (<4.55) 10/07/19 08:07 Troponin I < 0.012 ng/mL 10/07/19 08:07 Total Protein 6.5 g/dL (6.3-8.2) 10/06/19 15:25 Albumin 4.1 g/dL (3.5-5.0) 10/06/19 15:25 Triglycerides 155 mg/dL (<150) H 10/07/19 08:07 Cholesterol 108.36 mg/dL (0-200) 10/07/19 08:07 LDL Cholesterol Direct 58 mg/dL (<100) 10/07/19 08:07 VLDL Cholesterol 31.0 mg/dL (10-31) 10/07/19 08:07 HDL Cholesterol 37 mg/dL (>40) L 10/07/19 08:07 TSH 4.41 uIU/mL (0.47-4.68) 10/07/19 08:07 Urine Color YELLOW 10/06/19 20:00 Urine Appearance CLEAR 10/06/19 20:00 Urine pH 6.0 (5.0-9.0) 10/06/19 20:00 Ur Specific Alexander 1.012 10/06/19 20:00 Urine Protein NEGATIVE mg/dL (NEGATIVE) 10/06/19 20:00 Urine Glucose (UA) NEGATIVE mg/dL (NEGATIVE) 10/06/19 20:00 Urine Ketones NEGATIVE mg/dL (NEGATIVE) 10/06/19 20:00 Urine Blood NEGATIVE (NEGATIVE) 10/06/19 20:00 Urine Nitrite NEGATIVE (NEGATIVE) 10/06/19 20:00 Urine Bilirubin NEGATIVE (NEGATIVE) 10/06/19 20:00 Urine Urobilinogen NEGATIVE mg/dL (<2.0) 10/06/19 20:00 Ur Leukocyte Esterase NEGATIVE (NEGATIVE) 10/06/19 20:00 Urine WBC (Auto) 0 /HPF 10/06/19 20:00 Urine RBC (Auto) 0 /HPF 10/06/19 20:00 Squamous Epi Cells Auto <1 /HPF 10/06/19 20:00 Urine Mucus (Auto) RARE /LPF 10/06/19 20:00 Urine Ascorbic Acid NEGATIVE (NEGATIVE) 10/06/19 20:00 10/06/19 10/06/19 10/06/19 15:25 19:45 19:45 CK-MB (CK-2) 1.65 Troponin I < 0.012 < 0.012 Cancelled 10/07/19 10/07/19 01:55 08:07 CK-MB (CK-2) 1.53 1.81 Troponin I < 0.012 < 0.012 Impressions: Chest X-Ray 10/06/19 14:04 IMPRESSION: NO ACUTE RADIOGRAPHIC FINDING IN THE CHEST. Lung Scan-VQ NM 10/06/19 18:51 IMPRESSION: No evidence of acute pulmonary embolism. Venous Doppler Study 10/07/19 00:00 IMPRESSION: NO EVIDENCE DVT OR SVT IN THE LEFT LEG. Venous Doppler Study 10/07/19 00:00 IMPRESSION: NO EVIDENCE DVT OR SVT IN THE LEFT ARM. Plan Time Spent: Greater than 30 Minutes Stroke Is this a Stroke Patient?: No Acute Heart Failure - Is this a Heart Failure Patient?: No
[2019-10-09 17:13] VITALS: BP 132/50
== END 2019-10-09 18:11 | disposition home or self-care (01) ==
LOC: ER 13:39 → EH 23:26 → 5 10-07 00:15
PROVIDERS: ADMIT Emergency Medicine; ATTEND Emergency Medicine
DX: R07.2 Precordial pain (principal); I10 Essential (primary) hypertension; C85.80 Other specified types of non-Hodgkin lymphoma, unspecified site; R60.0 Localized edema; E11.69 Type 2 diabetes mellitus with other specified complication; E11.65 Type 2 diabetes mellitus with hyperglycemia; E78.5 Hyperlipidemia, unspecified; R06.09 Other forms of dyspnea; R05 Cough; R68.83 Chills (without fever); R06.2 Wheezing; Z79.899 Other long term (current) drug therapy; Z79.82 Long term (current) use of aspirin; Z87.891 Personal history of nicotine dependence; Z82.49 Family history of ischemic heart disease and other diseases of the circulatory system; Z87.01 Personal history of pneumonia (recurrent); Z79.84 Long term (current) use of oral hypoglycemic drugs; Z60.8 Other problems related to social environment; Z59.8 Other problems related to housing and economic circumstances; Z95.828 Presence of other vascular implants and grafts
CPT/HCPCS: 93005; 94640; 99284; 96360; 96361; 36415 ×4; 87040; 82553 ×2; 82962 ×3; 82550 ×2; 83735 ×3; 84443; 85025; 85027; 80048; 80053; 81001; 84484 ×2; 83036; 85379; 83605; 80061; 93306; 93971 ×2; 93017; 71046; 78452; 78582; 93010; G0378 ×4; A9500; A9540; A9567; J2785; J1644; J0360; J2270 ×2; J3490 ×12; J7030; J7620; Q9969 ×2